=== PATIENT | male | born 1990 | race Caucasian/White ===

== ENCOUNTER 2018-12-29 15:27 | Emergency (ER) | payer SELFPAY ==
--- NOTE | 2018-12-29 15:36 | PDOC ---
Rapid Medical Evaluation Chief Complaint: Pain Time Seen by Provider: 12/29/18 15:34 Medical Evaluation: 12/29/18 15:34 I have performed a brief in person evaluation of this patient. The patient presents with the CC of: chills, abd pain HPI: Pt complains of abd pain with chills x 1 day. Pt has come in contact with pt's dx with gastroenteritis. PE: Skin: Clear Lungs: Clear Heart: RRR Abd: non tender MS: Moves all extremities without difficulty Neuro: Alert and oriented Psych: Appropriate affect I have ordered the following: abd protocol Pt will proceed to the main ED for further evaluation. Discharge Disposition - Diagnosis Abdominal pain Qualifiers: Abdominal location: generalized Qualified Code(s): R10.84 - Generalized abdominal pain - Referrals - Patient Instructions - Post Discharge Activity
[2018-12-29 15:38] VITALS: BMI 25.7
[2018-12-29 16:11] LABS: EOS % 0.8 % (0-4.5); HEMATOCRIT 44.7 % (35.4-49); HEMOGLOBIN 15.9 GM/dL (11.7-16.9); LYMPH % 5.5 % (8-40); MCH 31.5 pg (25.7-33.7); MCHC 35.5 g/dl (32.0-35.9); MEAN CELL VOLUME 88.7 fl (80-96); MEAN PLT VOLUME 8.3 fl (7.5-11.1); NEUT % 89.7 % (42.8-82.8); PLATELET COUNT 234 K/MM3 (134-434); RBC 5.04 M/mm3 (4.00-5.60); RDW 12.7 % (11.9-15.9); WHITE BLOOD COUNT 7.8 K/mm3 (4.0-10.0)
[2018-12-29 16:31] LABS: ALBUMIN 4.2 g/dl (3.4-5.0); ALK PHOS 77 U/L (45-117); ANION GAP 7 MMOL/L (8-16); BILIRUBIN,TOTAL 1.3 mg/dL (0.2-1); BLOOD UREA NITROGEN 16 mg/dL (7-18); CALCIUM 8.9 mg/dL (8.5-10.1); CHLORIDE 104 mmol/L (98-107); CO2 25 mmol/L (21-32); GLUCOSE,RANDOM 94 mg/dL (74-106); LIPASE 111 U/L (73-393); POTASSIUM 3.8 mmol/L (3.5-5.1); SGOT/AST 29 U/L (15-37); SGPT/ALT 25 U/L (13-61); SODIUM 136 mmol/L (136-145); TOT PROT 7.6 g/dl (6.4-8.2)
--- NOTE | 2018-12-29 16:34 | PDOC ---
History of Present Illness - General Chief Complaint: Pain, Acute Stated Complaint: FLU LIKE SYMPTOMS Time Seen by Provider: 12/29/18 15:34 - History of Present Illness Initial Comments: 12/29/18 16:33 Patient denies N/V, F,C, CP, SOB, urinary complaints, abdominal pain, diarrhea, constipation, lightheadedness, weakness, sensory changes. PMHx: as noted above ROS: as noted SHx: Allergies: Past History - Past Medical History Allergies/Adverse Reactions: Allergies Allergy/AdvReac Type Severity Reaction Status Date / Time No Known Allergies Allergy Verified 12/29/18 15:38 COPD: No DVT: No Disorders: No - Immunization History Immunization Up to Date: No - Suicide/Smoking/Psychosocial Hx Smoking History: Unknown if ever smoked Have you smoked in the past 12 months: No Information on smoking cessation initiated: No Hx Alcohol Use: No Drug/Substance Use Hx: No Review of Systems - Review of Systems Comments:: 12/29/18 16:33 GENERAL/CONSTITUTIONAL: No fever or chills. No weakness. HEAD, EYES, EARS, NOSE AND THROAT: No change in vision. No ear pain or discharge. No sore throat. CARDIOVASCULAR: No chest pain or shortness of breath RESPIRATORY: No cough, wheezing, or hemoptysis. GASTROINTESTINAL: No nausea, vomiting, diarrhea or constipation. GENITOURINARY: No dysuria, frequency, or change in urination. MUSCULOSKELETAL: No joint or muscle swelling or pain. No neck or back pain. SKIN: No rash NEUROLOGIC: No headache, vertigo, loss of consciousness, or change in strength/ sensation. ENDOCRINE: No increased thirst. No abnormal weight change HEMATOLOGIC/LYMPHATIC: No anemia, easy bleeding, or history of blood clots. ALLERGIC/IMMUNOLOGIC: No hives or skin allergy. *Physical Exam - Vital Signs Last Vital Signs Temp Pulse Resp BP Pulse Ox 98.6 F 85 18 108/76 99 12/29/18 15:34 12/29/18 15:34 12/29/18 15:34 12/29/18 15:34 12/29/18 15:34 - Physical Exam Comments: 12/29/18 16:33 GENERAL: Awake, alert, and fully oriented, in no acute distress HEAD: No signs of trauma, normocephalic, atraumatic EYES: PERRLA, EOMI, sclera anicteric, conjunctiva clear ENT: Auricles normal inspection, hearing grossly normal, nares patent, oropharynx clear without exudates. Moist mucosa NECK: Normal ROM, supple, no lymphadenopathy, JVD, or masses LUNGS: No distress, speaks full sentences, clear to auscultation bilaterally HEART: Regular rate and rhythm, normal S1 and S2, no murmurs, rubs or gallops, peripheral pulses normal and equal bilaterally. ABDOMEN: Soft, nontender, normoactive bowel sounds. No guarding, no rebound. No masses EXTREMITIES : Normal inspection, Normal range of motion, no edema. No clubbing or cyanosis. NEUROLOGICAL: Cranial nerves II through XII grossly intact. Normal speech, normal gait, no focal sensorimotor deficits SKIN: Warm, Dry, normal turgor, no rashes or lesions noted Moderate Sedation - Procedure Monitoring Vital Signs: Procedure Monitoring Vital Signs Temperature 98.6 F 12/29/18 15:34 Pulse Rate 85 12/29/18 15:34 Respiratory Rate 18 12/29/18 15:34 Blood Pressure 108/76 12/29/18 15:34 O2 Sat by Pulse Oximetry (%) 99 12/29/18 15:34 ED Treatment Course - LABORATORY CBC & Chemistry Diagram: 12/29/18 15:45 12/29/18 15:45 - ADDITIONAL ORDERS Additional order review: Laboratory Results 12/29/18 15:45 Sodium 136 Potassium 3.8 Chloride 104 Carbon Dioxide 25 Anion Gap 7 L BUN 16 Creatinine 1.0 Creat Clearance w eGFR > 60 Random Glucose 94 Calcium 8.9 Total Bilirubin 1.3 H AST 29 ALT 25 Alkaline Phosphatase 77 Total Protein 7.6 Albumin 4.2 Lipase 111 12/29/18 15:45 RBC 5.04 MCV 88.7 MCHC 35.5 RDW 12.7 MPV 8.3 Neutrophils % 89.7 H Lymphocytes % 5.5 L Monocytes % 4.0 Eosinophils % 0.8 Basophils % 0.0 Medical Decision Making - Medical Decision Making 12/29/18 16:34 Ed Course: *DC/Admit/Observation/Transfer Diagnosis at time of Disposition: Abdominal pain Qualifiers: Abdominal location: generalized Qualified Code(s): R10.84 - Generalized abdominal pain - Discharge Dispostion Condition at time of disposition: Stable - Referrals Referrals: Hector Khan MD [Primary Care Provider] - - Patient Instructions Additional Instructions: Please return to the emergency department with any new or worsening symptoms or concerns. Please follow up with your primary care physician within 72 hours. - Post Discharge Activity - Attestations Physician Attestion: 12/29/18 16:34 I attest to the information provided in this note.
--- NOTE | 2018-12-29 16:36 | PDOC ---
History of Present Illness - History of Present Illness Initial Comments: This patient is a 28 year old male, with no significant PMHx, who presents with flu-like symptoms since yesterday. Patient reports experiencing sore throat, subjective fever, chills, body aches, abdominal pain, nausea, vomit (x2), diarrhea, decreased PO intake, and generalized weakness. Patient states that his fiance had similiar GI symptoms 1 week ago. Denies any rash, dysuria, cough. Patient states he did not get the flu shot this year. Allergies: NKDA PCP: Hector Khan ([facility] Hx: denies <Genet Sagastume - Last Filed: 12/29/18 16:57> <Marlena Hayden - Last Filed: 12/29/18 18:18> - General Chief Complaint: Pain, Acute Stated Complaint: FLU LIKE SYMPTOMS Time Seen by Provider: 12/29/18 15:34 Past History <Genet Sagastume - Last Filed: 12/29/18 16:57> - Past Medical History COPD: No DVT: No Disorders: No - Immunization History Immunization Up to Date: No - Suicide/Smoking/Psychosocial Hx Smoking History: Unknown if ever smoked Have you smoked in the past 12 months: No Information on smoking cessation initiated: No Hx Alcohol Use: No Drug/Substance Use Hx: No <Marlena Hayden - Last Filed: 12/29/18 18:18> - Past Medical History Allergies/Adverse Reactions: Allergies Allergy/AdvReac Type Severity Reaction Status Date / Time No Known Allergies Allergy Verified 12/29/18 15:38 Home Medications: Ambulatory Orders Ondansetron [Zofran Odt -] 4 mg SL TID PRN #15 od.tablet 12/29/18 Review of Systems - Review of Systems Comments:: CONSTITUTIONAL: +subjective fever, + chills, +generalized weakness, +decreased PO intake EYES: No visual changes ENT: No ear pain, +sore throat CARDIOVASCULAR: No chest pain, no palpitations RESPIRATORY: No cough, no SOB GI: +abdominal pain, + nausea,+ vomiting, no constipation, +diarrhea GENITOURINARY: No dysuria, no frequency, no hematuria MUSKULOSKELETAL: No back pain, no joint pain,+myalgias SKIN: No rash NEURO: No headache <Genet Sagastume - Last Filed: 12/29/18 16:57> *Physical Exam - Vital Signs Last Vital Signs Temp Pulse Resp BP Pulse Ox 98.6 F 85 18 108/76 99 12/29/18 15:34 12/29/18 15:34 12/29/18 15:34 12/29/18 15:34 12/29/18 15:34 - Physical Exam Comments: CONSTITUTIONAL: Well-appearing; well-nourished; in no apparent distress HEAD: Normocephalic; atraumatic EYES: PERRL; EOM intact ENMT: External appears normal; normal oropharynx NECK: Supple; nontender; no cervical lymphadenopathy CARD: Normal S1, S2; no murmurs, rubs, or gallops RESP: Normal chest excursion with respiration; breath sounds clear and equal bilaterally; no wheezes, rhonchi, or rales ABD: Soft, non-distended; non-tender; no palpable organomegaly, no palpable hernias EXT: Normal ROM in all four extremities; non-tender to palpation; distal pulses intact SKIN: Warm, dry, no rash NEURO: No focal neurological deficiencies. <Genet Sagastume - Last Filed: 12/29/18 16:57> - Vital Signs Last Vital Signs Temp Pulse Resp BP Pulse Ox 98.6 F 85 18 108/76 99 12/29/18 15:34 12/29/18 15:34 12/29/18 15:34 12/29/18 15:34 12/29/18 15:34 <Marlena Hayden - Last Filed: 12/29/18 18:18> Moderate Sedation - Procedure Monitoring Vital Signs: Procedure Monitoring Vital Signs Temperature 98.6 F 12/29/18 15:34 Pulse Rate 85 12/29/18 15:34 Respiratory Rate 18 12/29/18 15:34 Blood Pressure 108/76 12/29/18 15:34 O2 Sat by Pulse Oximetry (%) 99 12/29/18 15:34 <Genet Sagastume - Last Filed: 12/29/18 16:57> - Procedure Monitoring Vital Signs: Procedure Monitoring Vital Signs Temperature 98.6 F 12/29/18 15:34 Pulse Rate 85 12/29/18 15:34 Respiratory Rate 18 12/29/18 15:34 Blood Pressure 108/76 12/29/18 15:34 O2 Sat by Pulse Oximetry (%) 99 12/29/18 15:34 <Marlena Hayden - Last Filed: 12/29/18 18:18> ED Treatment Course - LABORATORY CBC & Chemistry Diagram: 12/29/18 15:45 12/29/18 15:45 - ADDITIONAL ORDERS Additional order review: Laboratory Results 12/29/18 15:45 Sodium 136 Potassium 3.8 Chloride 104 Carbon Dioxide 25 Anion Gap 7 L BUN 16 Creatinine 1.0 Creat Clearance w eGFR > 60 Random Glucose 94 Calcium 8.9 Total Bilirubin 1.3 H AST 29 ALT 25 Alkaline Phosphatase 77 Total Protein 7.6 Albumin 4.2 Lipase 111 12/29/18 15:45 RBC 5.04 MCV 88.7 MCHC 35.5 RDW 12.7 MPV 8.3 Neutrophils % 89.7 H Lymphocytes % 5.5 L Monocytes % 4.0 Eosinophils % 0.8 Basophils % 0.0 <Genet Sagastume - Last Filed: 12/29/18 16:57> - LABORATORY CBC & Chemistry Diagram: 12/29/18 15:45 12/29/18 15:45 - ADDITIONAL ORDERS Additional order review: Laboratory Results 12/29/18 15:45 Sodium 136 Potassium 3.8 Chloride 104 Carbon Dioxide 25 Anion Gap 7 L BUN 16 Creatinine 1.0 Creat Clearance w eGFR > 60 Random Glucose 94 Calcium 8.9 Total Bilirubin 1.3 H AST 29 ALT 25 Alkaline Phosphatase 77 Total Protein 7.6 Albumin 4.2 Lipase 111 12/29/18 15:45 RBC 5.04 MCV 88.7 MCHC 35.5 RDW 12.7 MPV 8.3 Neutrophils % 89.7 H Lymphocytes % 5.5 L Monocytes % 4.0 Eosinophils % 0.8 Basophils % 0.0 <Marlena Hayden - Last Filed: 12/29/18 18:18> Medical Decision Making - Medical Decision Making 12/29/18 17:12 a/p: 28yo male with no pmhx with n/v/d and sore throat today -recent sick contact with viral GI issue last week -pt is nontoxic in appearance -unable to tolerate po today -labs and ua sent from [facility] is pending -will add flu swab -will hydrate, tylenol, zofran -po challenge if labs negative -will monitor and reassess 12/29/18 17:13 labs reviewed lipase negative ua negative no elevated wbc flu pending 12/29/18 17:42 flu negative giving po challenge 12/29/18 18:15 pt feeling better tolerated po stable for dc to home will send zofran to pharmacy <Marlena Hayden - Last Filed: 12/29/18 18:18> *DC/Admit/Observation/Transfer - Attestations Scribe Attestion: 12/29/18 17:09 Documentation prepared by Genet Sagastume, acting as medical language specialist for Marlena Hayden DO. <Genet Sagastume - Last Filed: 12/29/18 16:57> - Discharge Dispostion Decision to Admit order: No - Attestations Physician Attestion: 12/29/18 18:17 I, Dr. Marlena Hayden DO, attest that this document has been prepared under my direction and personally reviewed by me in its entirety. I further attest, that it accurately reflects all work, treatment, procedures and medical decision -making performed by me. <Marlena Hayden - Last Filed: 12/29/18 18:18> Diagnosis at time of Disposition: Flu-like symptoms Abdominal pain Qualifiers: Abdominal location: generalized Qualified Code(s): R10.84 - Generalized abdominal pain - Discharge Dispostion Disposition: HOME Condition at time of disposition: Stable - Prescriptions Prescriptions: Ondansetron [Zofran Odt -] 4 mg SL TID PRN #15 od.tablet PRN Reason: Nausea - Referrals Referrals: Hector Khan MD [Primary Care Provider] - - Patient Instructions Printed Discharge Instructions: DI for Nausea -- Adult Additional Instructions: Please return to the emergency department with any new or worsening symptoms or concerns. Please follow up with your primary care physician within 72 hours. Please drink plenty of clear liquids. Please take all medications as prescribed. Please make an appointment to follow up with your PMD in 2 days. Please eat the BRAT diet - bananas, rice, apple sauce and toast. - Post Discharge Activity
[2018-12-29] MEDS ORDERED: ACETAMINOPHEN 1000 MG/100 ML VIAL (NON FORMULARY) IVPB ONE (16:46)
[2018-12-29] MEDS ORDERED: SODIUM CHLORIDE 0.9% 1000 ML INFUS.BAG IV ONE (16:46)
[2018-12-29] MEDS ORDERED: ONDANSETRON 4 MG/2 ML VIAL IVPUSH ONE (16:46)
[2018-12-29 17:00] LABS: URINE APPEARANCE CLEAR; URINE BILIRUBIN NEGATIVE (<2.0 mg/dL); URINE COLOR YELLOW; URINE GLUCOSE (UA) NEGATIVE (NEGATIVE); URINE KETONE TRACE (NEGATIVE); URINE LEUK ESTERASE NEGATIVE (NEGATIVE); URINE NITRITE NEGATIVE (NEGATIVE); URINE PROTEIN NEGATIVE (NEGATIVE); URINE UROBILINOGEN 4.0 E.U/dl mg/dL (0.2-1.0)
[2018-12-29] MEDS ORDERED: ONDANSETRON 4 MG/2 ML VIAL ONE (17:37)
[2018-12-29] MEDS ORDERED: ACETAMINOPHEN INJECTION 100 ML IVPB ONE (17:37)
[2018-12-29] MEDS ORDERED: KETOROLAC TROMETHAMINE 15 MG/ML VIAL IVPUSH ONE (17:46)
[2018-12-29] MEDS ORDERED: KETOROLAC TROMETHAMINE 15 MG/ML VIAL ONE (18:27)
[2018-12-29 18:47] VITALS: BP 113/65; PULSE 78; TEMP 100
== END 2018-12-29 18:49 | disposition home or self-care (01) ==
LOC: JER 15:27
PROC: 3E0333Z Introduction of Anti-inflammatory into Peripheral Vein, Percutaneous Approach (ICD-10-PCS; principal; 2018-12-29)
PROC: 3E033NZ Introduction of Analgesics, Hypnotics, Sedatives into Peripheral Vein, Percutaneous Approach (ICD-10-PCS; 2018-12-29)
PROC: 3E0337Z Introduction of Electrolytic and Water Balance Substance into Peripheral Vein, Percutaneous Approach (ICD-10-PCS; 2018-12-29)
PROC: 3E033GC Introduction of Other Therapeutic Substance into Peripheral Vein, Percutaneous Approach (ICD-10-PCS; 2018-12-29)
DX: J11.1 Influenza due to unidentified influenza virus with other respiratory manifestations (principal); R10.84 Generalized abdominal pain
CPT/HCPCS: 36415; 80053; 81003; 83690; 85025; 87804; 99282-25; J0131; J7030